=== PATIENT | female | born 1945 | race Caucasian/White ===

== ENCOUNTER → 2018-07-06 | Outpatient (CLI) | payer OTHER ==
[~2018-07-06] MED LIST: CARAFATE 1 GM TA1 G1 PO; CARDIZEM CD240 MG PO; CIPRO500 M1 PO; CRESTOR20 MG PO; FLOMAX0.4 MG PO; FLONASE16 GM; LOFIBRA200 MG PO; LOPRESSOR50 PO; NORCO 5-325 TA1 EACH PO; SPIRIVA; VENTOLIN HFA INH8 GM INH; XOPENEX0.31 MG/3; ZOFRAN ODT4 MG PO; ZOFRAN4 MG PO
== END ==
LOC: RAD 09:12
DX: R06.02 Shortness of breath (principal)

== ENCOUNTER 2018-12-20 10:03 | Emergency (ER) | payer OTHER ==
[~2018-12-20] VITALS: Ht 157.5 cm; Wt 59.9 kg
[2018-12-20 10:46] LABS: HEMATOCRIT 32.7 % (37.0-47.0); HEMOGLOBIN 10.5 gm/dL (12.0-15.0); MCH 25.8 pg (26.0-34.0); MCV 80.5 fL (80.0-100.0); PLATELET COUNT 319 thou/uL (150-400); RBC 4.06 mil/uL (4.20-5.00); RDW 15.7 % (10.5-14.5); WBC 10.3 thou/uL (4.0-11.0)
[2018-12-20 10:58] LABS: ANION GAP 12 mmol/L (7-16); BUN 16 mg/dL (7-18); CALCIUM 9.7 mg/dL (8.5-10.1); CHLORIDE 105 mmol/L (98-107); CO2 22 mmol/L (21-32); CREATININE 1.2 mg/dL (0.6-1.0); GLUCOSE 149 mg/dL (74-106); SODIUM 139 mmol/L (136-145)
[2018-12-20 11:07] LABS: ABSOLUTE NEUTROPHILS 8.3 thou/uL (1.4-8.2); PLATELET ESTIMATE NORMAL
[2018-12-20 11:08] LABS: ALBUMIN 3.4 g/dL (3.4-5.0); SGOT 25 U/L (15-37); SGPT 24 U/L (30-65); TOTAL BILIRUBIN 0.5 mg/dL (<0.1-1.0); TOTAL PROTEIN 7.4 g/dL (6.4-8.2); TROPONIN-I <0.06 ng/mL (<0.06)
[2018-12-20 11:39] LABS: APTT 30.1 Seconds (24.5-32.8); PROTIME 10.7 Seconds (9.3-11.4)
[2018-12-20] MEDS ORDERED: AUGMENTIN 875-1 EACH PO (12:23)
[2018-12-20] MEDS ORDERED: PREDNISONE 20 M20 MG PO (12:23)
[2018-12-20] MEDS ORDERED: ALBUTEROL2.5 MG/31 INH (12:25)
[2018-12-20 13:00] VITALS: BP 107/37
--- NOTE | 2018-12-20 19:22 | EKG ---
[place] [address] [facility] [place] [address] ELECTROCARDIOGRAM REPORT Name: TAMMY BERMUDEZ ALICIA Room #: DEP [facility] [id number] Admission: 12/20/18 Attend Phys: Discharge: 12/20/18 Date of : 41 Report #: [id number] THIS REPORT FOR: //name// [facility] ED Test Date: 2018-12-20 Test Time: 10:14:12 Pat Name: TAMMY BERMUDEZ Department: Room: Gender: F Customer Account Manager: RAY : 1945 Requested By: Guero Dela Cruz Order Number: [id number] MD: Alexey Alberts Measurements Intervals [place] Rate: 102 P: 0 CO: 145 QRS: 72 QRSD: 92 T: -27 QT: 344 QTc: 449 Interpretive Statements Sinus tachycardia Multiple premature complexes, vent & supraven Borderline repolarization abnormality Baseline wander in lead(s) V4 Compared to ECG 10/14/2013 00:08:24 Atrial and ventricular ectopy are now present Electronically Signed On 12-20-2018 19:22:37 LEASE BUYER by Alexey Alberts [email or web address] <ELECTRONICALLY SIGNED> By: Alexey Alberts MD, FACC 12/20/18 1922 1014 1014 Alexey Alberts MD, FAC /EPI
== END 2018-12-20 13:18 | disposition home or self-care (01) ==
LOC: ER 10:03
PROVIDERS: Emergency Medicine
DX: J44.1 Chronic obstructive pulmonary disease with (acute) exacerbation (principal); J20.9 Acute bronchitis, unspecified; J34.2 Deviated nasal septum

== ENCOUNTER → 2019-05-23 | Outpatient (CLI) | payer OTHER ==
[~2019-05-23] MED LIST changes: +ALBUTEROL2.5 MG/31 INH; +AUGMENTIN 875-1 EACH PO; +PREDNISONE 20 M20 MG PO
== END ==
LOC: SJCVC 16:04
DX: I25.119 Atherosclerotic heart disease of native coronary artery with unspecified angina pectoris (principal); I10 Essential (primary) hypertension; E78.00 Pure hypercholesterolemia, unspecified; E78.1 Pure hyperglyceridemia; I65.23 Occlusion and stenosis of bilateral carotid arteries; J44.9 Chronic obstructive pulmonary disease, unspecified; K21.9 Gastro-esophageal reflux disease without esophagitis; Z90.49 Acquired absence of other specified parts of digestive tract; Z90.710 Acquired absence of both cervix and uterus; Z79.899 Other long term (current) drug therapy; Z87.891 Personal history of nicotine dependence

== ENCOUNTER → 2019-06-28 | Outpatient (CLI) | payer OTHER | LOC: SJCVCIMAG 09:36 | DX: I11.9 Hypertensive heart disease without heart failure (principal); I49.1 Atrial premature depolarization; J44.9 Chronic obstructive pulmonary disease, unspecified; E78.1 Pure hyperglyceridemia; I25.119 Atherosclerotic heart disease of native coronary artery with unspecified angina pectoris; Z87.891 Personal history of nicotine dependence ==

== ENCOUNTER → 2019-10-17 | Outpatient (CLI) | payer OTHER | LOC: CAT 13:38 | PROVIDERS: ATTEND Pediatrics | DX: Z12.2 Encounter for screening for malignant neoplasm of respiratory organs (principal); I70.0 Atherosclerosis of aorta; I25.10 Atherosclerotic heart disease of native coronary artery without angina pectoris; Z87.891 Personal history of nicotine dependence ==

== ENCOUNTER → 2019-12-28 | Outpatient (CLI) | payer OTHER | LOC: SJCVCIMAG 08:49 | PROVIDERS: ATTEND Internal Medicine Cardiovascular Disease | DX: I08.1 Rheumatic disorders of both mitral and tricuspid valves (principal); I49.1 Atrial premature depolarization; I25.10 Atherosclerotic heart disease of native coronary artery without angina pectoris; I10 Essential (primary) hypertension; E78.00 Pure hypercholesterolemia, unspecified; I65.23 Occlusion and stenosis of bilateral carotid arteries; Z79.899 Other long term (current) drug therapy; Z87.891 Personal history of nicotine dependence ==

== ENCOUNTER → 2020-04-02 | Outpatient (CLI) | payer OTHER | LOC: CAT 10:34 | PROVIDERS: ATTEND Pediatrics | DX: R91.1 Solitary pulmonary nodule (principal); J84.10 Pulmonary fibrosis, unspecified ==

== ENCOUNTER → 2020-07-18 | Outpatient (CLI) | payer OTHER | LOC: MRI 10:05 | PROVIDERS: ATTEND Neuromusculoskeletal Medicine & OMM | DX: M47.812 Spondylosis without myelopathy or radiculopathy, cervical region (principal); R42 Dizziness and giddiness ==

== ENCOUNTER → 2020-07-25 | Outpatient (CLI) | payer OTHER | LOC: SJCVCIMAG 08:43 | PROVIDERS: ATTEND Internal Medicine Cardiovascular Disease | DX: R94.31 Abnormal electrocardiogram [ECG] [EKG] (principal); I65.23 Occlusion and stenosis of bilateral carotid arteries; I25.119 Atherosclerotic heart disease of native coronary artery with unspecified angina pectoris; I10 Essential (primary) hypertension; E78.00 Pure hypercholesterolemia, unspecified; I35.0 Nonrheumatic aortic (valve) stenosis; I25.10 Atherosclerotic heart disease of native coronary artery without angina pectoris; J44.9 Chronic obstructive pulmonary disease, unspecified; K21.9 Gastro-esophageal reflux disease without esophagitis; E78.5 Hyperlipidemia, unspecified; Z79.899 Other long term (current) drug therapy; Z87.891 Personal history of nicotine dependence; Z88.1 Allergy status to other antibiotic agents ==

== ENCOUNTER → 2020-11-20 | Outpatient (CLI) | payer OTHER | LOC: SJCVC 14:31 | PROVIDERS: ATTEND Internal Medicine Cardiovascular Disease | DX: R94.31 Abnormal electrocardiogram [ECG] [EKG] (principal); I25.119 Atherosclerotic heart disease of native coronary artery with unspecified angina pectoris; I10 Essential (primary) hypertension; E78.00 Pure hypercholesterolemia, unspecified; I35.0 Nonrheumatic aortic (valve) stenosis; I65.23 Occlusion and stenosis of bilateral carotid arteries; J44.9 Chronic obstructive pulmonary disease, unspecified; R42 Dizziness and giddiness; K21.9 Gastro-esophageal reflux disease without esophagitis; E78.5 Hyperlipidemia, unspecified; Z87.891 Personal history of nicotine dependence; Z88.1 Allergy status to other antibiotic agents; Z79.899 Other long term (current) drug therapy ==

== ENCOUNTER → 2020-12-02 | Outpatient (CLI) | payer OTHER | LOC: MRI 09:22 | PROVIDERS: ATTEND Neuromusculoskeletal Medicine & OMM | DX: I67.82 Cerebral ischemia (principal); R42 Dizziness and giddiness ==

== ENCOUNTER → 2020-12-19 | Outpatient (CLI) | payer OTHER | LOC: CAT 11:26 | PROVIDERS: ATTEND Pediatrics | DX: J44.9 Chronic obstructive pulmonary disease, unspecified (principal); R91.1 Solitary pulmonary nodule ==

== ENCOUNTER → 2021-01-17 | Outpatient (CLI) | payer OTHER ==
[~2021-01-17] MED LIST changes: +CEFDINIR300 MG PO; +DECADRON4 MG PO; +DORYX MPC120 MG PO; +IPRAT-ALBUT 0.5-3 ML INH; +PACERONE 200 M200 M1 PO; +XARELTO15 MG PO
== END ==
LOC: PET 12:06
PROVIDERS: ATTEND Pediatrics
DX: R91.1 Solitary pulmonary nodule (principal); R59.0 Localized enlarged lymph nodes; M79.89 Other specified soft tissue disorders

== ENCOUNTER 2021-01-26 20:19 | Inpatient (IN) | payer OTHER ==
[~2021-01-26] VITALS: Ht 157.5 cm; Wt 62.3 kg
[~2021-01-26 20:19] MED LIST changes: -CEFDINIR300 MG PO; -DECADRON4 MG PO; -DORYX MPC120 MG PO; -IPRAT-ALBUT 0.5-3 ML INH; -PACERONE 200 M200 M1 PO; -XARELTO15 MG PO
[2021-01-26 20:29] VITALS: BP 129/66
[2021-01-26 21:05] LABS: BASOPHILS 0.5 % (0.0-2.0); EOSINOPHILS 1.1 % (0.0-3.0); HEMATOCRIT 39.9 % (37.0-47.0); HEMOGLOBIN 13.5 gm/dL (12.0-15.0); LYMPHOCYTES 16.7 % (24.0-44.0); MCH 29.2 pg (26.0-34.0); MCHC 33.7 g/dL (28.0-37.0); MCV 86.4 fL (80.0-100.0); MONOCYTES 14.6 % (1.0-8.0); PLATELET COUNT 299 thou/uL (150-400); POLYS 67.1 % (36.0-66.0); RBC 4.62 mil/uL (4.20-5.00); RDW 16.2 % (10.5-14.5); WBC 7.5 thou/uL (4.0-11.0)
[2021-01-26 21:10] LABS: BE(vivo) -1.4 mmol/L (-2 to +3); HCO3 20.2 mmol/L (22.0-26.0); PCO2 26.2 mmHg (35.0-45.0); PO2 87.4 mmHg (80.0-100.0); pH 7.505 (7.360-7.450); sO2 97.5 % (92.0-98.0)
[2021-01-26 21:32] LABS: ALBUMIN 3.1 g/dL (3.4-5.0); CALCIUM 9.9 mg/dL (8.5-10.1); CREATININE 1.5 mg/dL (0.6-1.0); TOTAL BILIRUBIN 0.6 mg/dL (0.2-1.0)
[2021-01-26 21:33] LABS: POTASSIUM 2.8 mmol/L (3.5-5.1)
[2021-01-27] VITALS (7 sets, daily range): BP systolic 92–133; BP diastolic 45–55
[2021-01-27 02:36] LABS: URINE BILIRUBIN NEGATIVE (Negative); URINE BLOOD 3+ (Negative); URINE CLARITY CLEAR; URINE COLOR YELLOW; URINE GLUCOSE-RANDOM* NEGATIVE (Negative); URINE KETONES NEGATIVE (Negative); URINE LEUKOCYTES-REFLEX NEGATIVE (Negative); URINE NITRITE-REFLEX NEGATIVE (Negative); URINE PROTEIN (DIPSTICK) TRACE (Negative); URINE SPECIFIC GRAVITY 1.015 (1.005-1.035); URINE UROBILINOGEN 0.2 E.U./dl (0.2-1.0)
[2021-01-27 02:50] LABS: FINE GRANULAR CASTS 4-10 Moderate /LPF (None Seen); HYALINE CASTS 0-3 Few /LPF (None Seen); MUCUS 4-6 Moderate strn/LPF (None Seen); SQUAMOUS 0-3 Few /LPF (0-3); URINE RBC 1-2 Rare /HPF (NONE SEEN); URINE WBC-REFLEX 6-15 Few /HPF (0-5); WBC CASTS 4-10 Moderate /LPF (None Seen)
[2021-01-27 02:51] LABS: BACTERIA-REFLEX 1-9 Few /HPF (None Seen); CRYSTALS None Seen /LPF (None Seen)
--- NOTE | 2021-01-27 07:14 | EKG ---
[place] [address] [employer] [place] [address] ELECTROCARDIOGRAM REPORT Name: TAMMY BERMUDEZ ALICIA Room #: 170-10 ADM IN M.R.#: [id number] Admission: 01/26/21 Attend Phys: Edenilson Andujar MD Discharge: Date of : 41 Report #: [id number] [facility] ED Test Date: 2021-01-26 Test Time: 22:00:18 Pat Name: TAMMY BERMUDEZ Department: Room: 170 Gender: F Molder Offbearer: : 1945 Requested By: Juancho Rich Order Number: [id number] MD: Gui Russell Measurements Intervals Only Rate: 160 P: IA: QRS: 73 QRSD: 94 T: 233 QT: 271 QTc: 443 Interpretive Statements Atrial fibrillation with rapid V-rate Repolarization abnormality, prob rate related Baseline wander in lead(s) V5 Compared to ECG 12/20/2018 10:14:12 Sinus tachycardia no longer present Electronically Signed On 01-27-2021 7:14:43 MICROBIOLOGY DIRECTOR by Gui Russell [email or web address] <ELECTRONICALLY SIGNED> By: Gui Russell MD, [facility] 12/713 99 99 Gui Russell MD, FAC /EPI
--- NOTE | 2021-01-27 08:57 | EKG ---
[place] [address] [facility] [place] [address] ELECTROCARDIOGRAM REPORT Name: TAMMY BERMUDEZ ALICIA Room #: 205- ADM IN M.R.#: [id number] Admission: 01/26/21 Attend Phys: Edenilson Andujar MD Discharge: Date of : 41 Report #: [id number] [facility] ED Test Date: 2021-01-27 Test Time: 05:29:33 Pat Name: TAMMY BERMUDEZ Department: Room: 205 Gender: F Requisition Approver: : 1945 Requested By: Maddie Mello Order Number: [id number] MD: Alexey Alberts Measurements Intervals [place] Rate: 71 P: 0 CA: 59 QRS: 66 QRSD: 98 T: -5 QT: 448 QTc: 487 Interpretive Statements Sinus rhythm Atrial premature complex Short CA interval Borderline prolonged QT interval Compared to ECG 01/26/2021 22:00:18 Atrial fibrillation no longer present ST and T wave abnormality is less pronounced Electronically Signed On 01-27-2021 8:56:59 SOAP WORKER by Alexey Alberts [email or web address] <ELECTRONICALLY SIGNED> By: Alexey Alberts MD, [facility] 01/27/21 0856 0529 0529 Alexey Alberts MD, [facility] /EPI
[2021-01-27 09:47] LABS: CALCIUM 9.2 mg/dL (8.5-10.1); CREATININE 1.7 mg/dL (0.6-1.0); MAGNESIUM 2.6 mg/dL (1.8-2.4); POTASSIUM 3.6 mmol/L (3.5-5.1)
--- NOTE | 2021-01-27 11:59 | 2DMMODE ---
[facility] [place] [address] 2 D/M-MODE ECHOCARDIOGRAM Name: TAMMY BERMUDEZ RUIDOSO Room #: 205-P ADM IN M.R.#: [id number] Admission: 01/26/21 Attend Phys: Edenilson Andujar MD Discharge: Date of : 41 Report #: [id number] THIS REPORT FOR: cc: Marco Marquez,Alexey Caraballo MD [facility] ~ APPROVED REPORT Study performed: 01/27/2021 10:22:39 EXAM: Comprehensive 2D, Doppler, and color-flow Echocardiogram Patient Location: Bedside Room #: 205 Status: routine BSA: 1.59 HR: 61 bpm BP: 99/47 mmHg Rhythm: NSR Other Information Study Quality: Good Indications COPD Atrial Fibrillation CAD Hypertension/HDD 2D Dimensions RVDd: 30.05 mm IVSd: 10.79 (7-11mm) LVOT Diam: 19.12 (18-24mm) LVDd: 51.63 mm PWd: 9.70 (7-11mm) Ascending Ao: 30.96 (22-36mm) LVDs: 39.36 (25-40mm) Left Atrium: 34.79 (27-40mm) Aortic Root: 25.05 mm IVC: 15.00 mm Volumes Left Atrial Volume (Systole) Single Plane 4CH: 50.32 mL Single Plane 2CH: 48.12 mL LA ESV Index: 34.00 mL/m2 Aortic Valve AoV Peak Santino.: 2.32 m/s [facility] [place] [address] 2 D/M-MODE ECHOCARDIOGRAM Name: TAMMY BERMUDEZ RUIDOSO Room #: 205-P ADM IN M.R.#: [id number] Admission: 01/26/21 Attend Phys: Edenilson Andujar MD Discharge: Date of : 41 Report #: [id number] Peak Gr.: 21.47 mmHg LVOT Max P.53 mmHg AO Mean Gr.: 12.02 mmHg LVOT Mean P.96 mmHg AO V2 Mean: 1.62 m/s LVOT Max V: 0.94 m/s AO V2 VTI: 58.99 cm LVOT Mean V: 0.65 m/s PARISH (VTI): 1.16 cm2 LVOT V1 VTI: 23.86 cm PARISH Vmax: 1.16 cm2 SV (LVOT): 68.45 mL Mitral Valve E/A Ratio: 1.9 MV Decel. Time: 301.99 ms MV E Max Santino.: 1.18 m/s MV A Santino.: 0.62 m/s MV PHT: 87.58 ms IVRT: 83.04 ms Pulmonary Valve PV Peak Santino.: 0.85 m/s PV Peak Gr.: 2.86 mmHg Pulmonary Vein P Vein S: 0.44 m/s P Vein A: 0.26 m/s P Vein D: 0.64 m/s P Vein A Dur.: 101.5 msec P Vein S/D Ratio: 0.69 Tricuspid Valve TR Peak Santino.: 2.70 m/s TR Peak Gr.: 29.22 mmHg PA Pressure: 34.00 mmHg Left Ventricle The left ventricle is normal size. There is normal LV segmental wall motion. There is normal left ventricular wall thickness. The left ventricular systolic function is normal. The left ventricular ejection fraction is within the normal range. LVEF is 55-60%. Moderate diastolic dysfunction Right Ventricle The right ventricle is normal size. The right ventricular systolic function is normal. Atria The left atrium size is normal. The right atrium size is normal. Aortic Valve Aortic valve is calcified (Peak gradient 21mm Hg, mean 12mmHg). [place] [address] 2 D/M-MODE ECHOCARDIOGRAM Name: TAMMY BERMUDEZ RUIDOSO Room #: [address] [place] [address] IN [facility]#: [id number] Admission: 01/26/21 Attend Phys: Edenilson Andujar MD Discharge: Date of : 41 Report #: [id number] No aortic regurgitation is present. Mitral Valve Mild mitral annular calcification There is no mitral valve regurgitation noted. No evidence of mitral valve stenosis. Tricuspid Valve The tricuspid valve is normal in structure. There is trace tricuspid regurgitation. Estimated pulmonary artery pressure of 34 mmHg. Pulmonic Valve The pulmonary valve is normal in structure. There is no pulmonic valvular regurgitation. Great Vessels The aortic root is normal in size. IVC is normal in size and collapses >50% with inspiration. Pericardium There is no pericardial effusion. <Conclusion> The left ventricular systolic function is normal. There is normal LV segmental wall motion. LVEF is 55-60%. Moderate diastolic dysfunction Aortic valve is calcified (Peak gradient 21mm Hg, mean 12mmHg). Mild stenosis Mild mitral annular calcification. No mitral valve regurgitation There is trace tricuspid regurgitation. Estimated pulmonary artery pressure of 34 mmHg. No pericardial effusion. <ELECTRONICALLY SIGNED> By: Alexey Alberts MD, FACC 01/27/21 1159 1159 1159 Alexey Alberts MD, FACC /INF
--- NOTE | 2021-01-27 12:52 | EKG ---
[address] [place] [address] ELECTROCARDIOGRAM REPORT Name: TAMMY BERMUDEZ ALICIA Room #: 205-P ADM IN M.R.#: [id number] Admission: 01/26/21 Attend Phys: Edenilson Andujar MD Discharge: Date of : 41 Report #: [id number] [facility] ED Test Date: 2021-01-26 Test Time: 20:52:05 Pat Name: TAMMY BERMUDEZ Department: Room: 205 P Gender: F Associate Business Analyst: michelle : 1945 Requested By: Juancho Rich Order Number: [id number] MD: Gui Russell Measurements Intervals [place] Rate: 171 P: 88 [place]: 200 QRS: 76 QRSD: 88 T: 242 QT: 250 QTc: 422 Interpretive Statements AFIB Repolarization abnormality, prob rate related Compared to ECG 12/20/2018 10:14:12 Sinus tachycardia no longer present Electronically Signed On 01-27-2021 12:52:13 WINDOWS SYSTEMS ADMIN by Gui Russell [email or web address] <ELECTRONICALLY SIGNED> By: Gui Russell MD, [facility] 01/27/21 1252 51 51 Gui Russell MD, FACC /EPI
--- NOTE | 2021-01-27 12:52 | EKG ---
[address] [place] [address] ELECTROCARDIOGRAM REPORT Name: SARA BERMUDEZJuan Francisco VARGAS Room #: 205- ADM IN M.R.#: [id number] Admission: 01/26/21 Attend Phys: Edenilson Andujar MD Discharge: Date of : 41 Report #: [id number] [facility] Test Date: 2021-01-27 Test Time: 08:38:49 Pat Name: TAMMY BERMUDEZ Department: Room: 205 P Gender: F Wedger Machine: JALEESA : 1945 Requested By: Maddie Mello Order Number: [id number] MD: Gui Russell Measurements Intervals [place] Rate: 58 P: 67 RI: 147 QRS: 64 QRSD: 95 T: 230 QT: 420 QTc: 413 Interpretive Statements Sinus rhythm Atrial premature complex Nonspecific T abnormalities, diffuse leads Compared to ECG 01/27/2021 05:29:33 T-wave abnormality now present Short RI interval no longer present Electronically Signed On 01-27-2021 12:52:28 POWER ELECTRONICS ENGINEER by Gui Russell [email or web address] <ELECTRONICALLY SIGNED> By: Gui Russell MD, [facility] 01/27/21 1252 7 7 Gui Russell MD, [facility] /EPI
--- NOTE | 2021-01-27 16:16 | NUR ---
ASSUMED CARE OF THIS PATIENT FROM ED AT APPROX 0830 01/27. PT COMFORTABLE, ON 2L NC, DENIES PAIN. AMIO GTT INFUSING, TELE PATCHES/PACK APPLIED. VITAL SIGNS TAKEN, ROSARIO CATHETER ASSESSED, SCDS APPLIED, CALL LIGHT WITHIN REACH. PT PHONED SPOUSE TO UPDATE PT LOCATION IN HOSPITAL, WILL BE COMING TO BEDSIDE IN A FEW HOURS TO VISIT.
[2021-01-28 04:00] VITALS: BP 141/42
[2021-01-28 07:46] VITALS: BP 132/49
[2021-01-28] MEDS ORDERED: XARELTO15 MG PO (07:46)
[2021-01-28] MEDS ORDERED: PACERONE 200 M200 M1 PO (07:46)
[2021-01-28 10:46] LABS: CALCIUM 8.8 mg/dL (8.5-10.1); CREATININE 1.9 mg/dL (0.6-1.0); POTASSIUM 3.5 mmol/L (3.5-5.1)
[2021-01-28 11:24] VITALS: BP 105/79
[2021-01-28] MEDS ORDERED: IPRAT-ALBUT 0.5-3 ML INH (13:21)
[2021-01-28] MEDS ORDERED: CEFDINIR300 MG PO (13:21)
--- NOTE | 2021-01-28 14:41 | NUR ---
PER DR. HAAS, IF PATIENT DOESN'T NEED O2 AT HOME SHE CAN DC TODAY AFTER DRINKING 1000ML OF FLUID SINCE HER IV WENT BVAD. IF PATIENT NEEDS O2 THEN DC WILL BE HELD UNTIL TOMORROW. WCTM
[2021-01-28 15:18] VITALS: BP 142/59
--- NOTE | 2021-01-28 16:24 | NUR ---
PATIENT ADMITTED FOR AFIB W/RVR; ACUTE HYPOXIC RESP FAILURE;HYPOKALEMIA. CHART REVIEWED AND DISCUSSED WITH CARE TEAM. MET WITH PT THIS DAY. CM ROLE INTRODUCED. 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 EXER OX COMPLETE AND PT DOES NOT QUALIFY FOR HOME OXYGEN. PT LIVES AT HOME WITH HER . SHE WILL DC WITH NO HOME NEEDS. NO OTHER CM INTERVENTIONS INDICATED.
[2021-01-28 16:32] VITALS: BP 142/59
== END 2021-01-28 17:09 | disposition home or self-care (01) | DRG 193 ==
LOC: ER 20:19 → EROBS 23:52 → 2N 23:52
PROVIDERS: Emergency Medicine; Hospitalist; Nurse Practitioner Family; ADMIT Hospitalist; ATTEND Hospitalist
DX: J18.9 Pneumonia, unspecified organism (principal); J96.21 Acute and chronic respiratory failure with hypoxia; N17.9 Acute kidney failure, unspecified; I13.0 Hypertensive heart and chronic kidney disease with heart failure and stage 1 through stage 4 chronic kidney disease, or unspecified chronic kidney disease; I50.30 Unspecified diastolic (congestive) heart failure; J44.0 Chronic obstructive pulmonary disease with (acute) lower respiratory infection; R65.10 Systemic inflammatory response syndrome (SIRS) of non-infectious origin without acute organ dysfunction; I48.91 Unspecified atrial fibrillation; E78.5 Hyperlipidemia, unspecified; E87.6 Hypokalemia; N18.2 Chronic kidney disease, stage 2 (mild); Z83.3 Family history of diabetes mellitus; Z82.49 Family history of ischemic heart disease and other diseases of the circulatory system
CPT/HCPCS: 10081; 10797

== ENCOUNTER 2021-02-18 11:02 | Inpatient (IN) | payer OTHER ==
[~2021-02-18] VITALS: Ht 157.5 cm; Wt 59.0 kg
[~2021-02-18 11:02] MED LIST changes: +CEFDINIR300 MG PO; +IPRAT-ALBUT 0.5-3 ML INH; +PACERONE 200 M200 M1 PO; +XARELTO15 MG PO
[2021-02-18 11:24] VITALS: BP 86/40
[2021-02-18 12:42] LABS: ABSOLUTE NEUTROPHILS 5.6 thou/uL (1.4-8.2); BASOPHILS 0.4 % (0.0-2.0); EOSINOPHILS 4.2 % (0.0-3.0); HEMATOCRIT 27.4 % (37.0-47.0); HEMOGLOBIN 9.1 gm/dL (12.0-15.0); LYMPHOCYTES 13.9 % (24.0-44.0); MCH 29.1 pg (26.0-34.0); MCHC 33.2 g/dL (28.0-37.0); MCV 87.4 fL (80.0-100.0); MONOCYTES 11.2 % (1.0-8.0); PLATELET COUNT 357 thou/uL (150-400); POLYS 70.3 % (36.0-66.0); RBC 3.13 mil/uL (4.20-5.00); RDW 17.5 % (10.5-14.5)
[2021-02-18 12:50] LABS: CALCIUM 8.4 mg/dL (8.5-10.1); CREATININE 2.5 mg/dL (0.6-1.0); POTASSIUM 3.6 mmol/L (3.5-5.1)
[2021-02-18 13:01] LABS: ALBUMIN 2.6 g/dL (3.4-5.0); TOTAL PROTEIN 7.3 g/dL (6.4-8.2)
[2021-02-18 14:45] LABS: ALBUMIN 2.6 g/dL (3.4-5.0); DIRECT BILIRUBIN 0.2 mg/dL (<0.1-0.2); TOTAL BILIRUBIN 0.8 mg/dL (0.2-1.0); TOTAL PROTEIN 7.6 g/dL (6.4-8.2)
[2021-02-18 16:00] VITALS: BP 159/82
[2021-02-18 20:40] LABS: % SATURATION 18 % (20-39); IRON 57 ug/dL (50-170); TIBC 318 ug/dL (250-450)
[2021-02-18 20:49] VITALS: BP 125/52
[2021-02-18 21:07] LABS: FOLIC ACID 4.5 ng/mL (8.6-58.9)
[2021-02-19 03:19] LABS: ABSOLUTE NEUTROPHILS 4.9 thou/uL (1.4-8.2); BASOPHILS 0.4 % (0.0-2.0); EOSINOPHILS 3.8 % (0.0-3.0); HEMATOCRIT 24.3 % (37.0-47.0); LYMPHOCYTES 13.6 % (24.0-44.0); MCH 28.8 pg (26.0-34.0); MCHC 33.1 g/dL (28.0-37.0); MONOCYTES 9.8 % (1.0-8.0); PLATELET COUNT 305 thou/uL (150-400); POLYS 72.4 % (36.0-66.0); RBC 2.79 mil/uL (4.20-5.00); RDW 17.5 % (10.5-14.5); WBC 6.7 thou/uL (4.0-11.0)
--- NOTE | 2021-02-19 03:51 | NUR ---
Pt admitted from ER in stable condition. COVID + with recent pneumonia. She is on /, satting well above 95%.Continent of B/B. Requires SBA to the BSC.IVF infusing.SR on telemetry. Denies pain. Makes needs known.
[2021-02-19 04:42] LABS: CALCIUM 7.9 mg/dL (8.5-10.1); CREATININE 1.8 mg/dL (0.6-1.0); POTASSIUM 3.1 mmol/L (3.5-5.1)
[2021-02-19 06:20] VITALS: BP 119/45
[2021-02-19 08:07] VITALS: BP 128/51
--- NOTE | 2021-02-19 08:07 | EKG ---
[place] [address] [facility] [employer] [place] [address] ELECTROCARDIOGRAM REPORT Name: TAMMY BERMUDEZLINE Room #: 458-P ADM IN M.R.#: [id number] Admission: 02/18/21 Attend Phys: Kelvin Callahan MD Discharge: Date of : 41 Report #: [id number] [facility] ED Test Date: 2021-02-18 Test Time: 12:22:00 Pat Name: TAMMY BERMUDEZ Department: Room: [facility] Gender: F Ship'S Surveyor: MIRELLA : 1945 Requested By: Bryson Rowe Order Number: [id number] MD: Alexey Alberts Measurements Intervals [place] Rate: 77 P: 75 [place]: 142 QRS: 51 QRSD: 104 T: 17 QT: 451 QTc: 511 Interpretive Statements Sinus rhythm Multiple premature complexes, vent & supraven Nonspecific ST and T wave abnormality Prolonged QT interval Compared to ECG 01/27/2021 08:38:49 Prolonged QT interval now present Electronically Signed On 02-19-2021 8:07:23 CREW CAR DRIVER by Alexey Alberts [email or web address] <ELECTRONICALLY SIGNED> By: Alexey Alberts MD, [facility] 02/19/21806 122 122 Alexey Alberts MD, [facility] /EPI
[2021-02-19 10:49] VITALS: BP 117/48
--- NOTE | 2021-02-19 14:31 | NUR ---
PT ADMITTED RELATED TO COVID AND KAZ. CM REVIEWED CHART AND SPOKE WITH CARE TEAM. CM SPOKE WITH PT OVER THE PHONE THIS DAY. PT APPEARED TO BE A&O X4. CM ROLE INTRODUCED. PT INDICATED SHE LIVES IN A HOUSE WITH HER 2 STEPS TO ENTER 14 INSIDE. 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 PT INDICATED NO HH OR OP HX. 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 NAKUL COLIN. PT INDICATED SHE PLANS TO RETURN HOME ONCE MEDICALLY STABLE. ID AND RENAL TO EVAL. CM FOLLOWING.
--- NOTE | 2021-02-19 14:55 | NUR ---
Patient axox4, walking to bathroom, wash up herself. Miralax given to help with bowel movement. Patient stated no pain, sat up in the chair, poor appetite. Call light within reach, will continous monitoring.
[2021-02-19 16:04] VITALS: BP 121/62
[2021-02-19 20:52] VITALS: BP 131/51
--- NOTE | 2021-02-20 05:11 | NUR ---
patient aox3 confused and forgetful.patient ambulates in the room with steady gaits.patient had a panic attack this shift and c/o soa. o2 sat was 97%.no soa or distess noted this shift.called hospice coordinator no new orders. patient calm and asleep no s/s of pain or discomfort. patient in bed asleep at this time breathing regular and unlaboured.
[2021-02-20 05:31] VITALS: BP 147/52
[2021-02-20 07:07] LABS: HEMATOCRIT 24.9 % (37.0-47.0); HEMOGLOBIN 8.4 gm/dL (12.0-15.0); MCH 29.9 pg (26.0-34.0); MCHC 33.6 g/dL (28.0-37.0); PLATELET COUNT 359 thou/uL (150-400); RDW 17.8 % (10.5-14.5); WBC 5.8 thou/uL (4.0-11.0)
[2021-02-20 07:39] LABS: ALBUMIN 2.3 g/dL (3.4-5.0); CALCIUM 8.8 mg/dL (8.5-10.1); CREATININE 1.3 mg/dL (0.6-1.0); DIRECT BILIRUBIN 0.1 mg/dL (<0.1-0.2); MAGNESIUM 2.1 mg/dL (1.8-2.4); PHOSPHORUS 2.5 mg/dL (2.5-4.9); POTASSIUM 3.9 mmol/L (3.5-5.1); TOTAL BILIRUBIN 0.7 mg/dL (0.2-1.0); TOTAL PROTEIN 7.2 g/dL (6.4-8.2)
--- NOTE | 2021-02-20 07:44 | HC ---
[facility] [place] [address] CONSULTATION Name: TAMMY BERMUDEZ Room #: 458-P ADM IN M.R.#: [id number] Admission: 02/18/21 Attend Phys: Kelvin Callahan MD Discharge: Date of : 41 Report #: [id number] THIS REPORT FOR: cc: Brigid Hill Beth RNP Barry, Joseph W. MD ~ DATE OF SERVICE: 02/19/2021 INFECTIOUS DISEASE CONSULTATION ATTENDING PHYSICIAN: Dr. Callahan. REASON FOR EVALUATION: COVID-19 infection, complicated by pneumonitis and respiratory failure. HISTORY OF PRESENT ILLNESS: Chart reviewed. The patient examined. This is a 75-year-old woman with a history of underlying COPD, who was actually hospitalized in latter part of January with rapid AFib, pneumonitis. She was discharged in stable condition. At that time, she was negative on COVID testing. She apparently became lightheaded and actually fell, which prompted ER visit. She was found to have a positive COVID test. Chest x-ray noted improving interstitial opacities relative to the January x-ray ____ injury with creatinine increased to 2.5 from 1.9. She was initiated on therapy with supplemental oxygen 2 L per nasal cannula. She was given corticosteroids. Today, she states she feels somewhat improved, although is weak. ALLERGIES: Listed to AMOXICILLIN. CURRENT MEDICATIONS: Include rivaroxaban, methylprednisolone, amiodarone, pantoprazole, budesonide, DuoNeb, ondansetron. PAST MEDICAL HISTORY: As described above, some underlying COPD, hypertension, hyperlipidemia. SOCIAL HISTORY: Nonsmoker, no ethanol, no illicit drug use. FAMILY HISTORY: Noncontributory. REVIEW OF SYSTEMS: Otherwise, unremarkable. PHYSICAL EXAMINATION: GENERAL: She appears chronically ill. She is pleasant, cooperative, mild to moderate distress. She does appear undernourished, pale. VITAL SIGNS: Temperature 98.1, pulse 78, respirations 18, blood pressure 117/48. SKIN: Warm, dry, no rashes. [facility] [address] [facility] [place] [address] CONSULTATION Name: TAMMY BERMUDEZ ELKO Room #: 458-P [facility] IN M.R.#: [id number] Admission: 02/18/21 Attend Phys: Kelvin Callahan MD Discharge: Date of : 41 Report #: [id number] HEENT: Normocephalic. Extraocular muscles intact. NECK: Supple. LUNGS: Bilateral scattered coarse breath sounds, diminished overall. HEART: Irregular. I do not appreciate a murmur. ABDOMEN: Soft, nontender. GENITOURINARY AND RECTAL: Deferred. LABORATORY DATA: Most recent electrolytes, sodium 141, potassium 3.1, chloride 102, bicarbonate is 27, anion gap of 12, BUN and creatinine 23 and 1.8. CBC: White count of 6.7, H and H 8.0 and 24.3, platelets of 305. Ferritin 134. Coronavirus testing both by antigen and PCR were positive. Procalcitonin 0.07. Sed rate greater than 125. ASSESSMENT AND PLAN: COVID-19 infection, complicated by pneumonitis and respiratory failure. The patient was recently hospitalized with pneumonitis. We will initiate therapy with remdesivir and baricitinib, in addition to corticosteroids and vitamins. We will hold on antibacterials at the moment. May need additional evaluation too. I am concerned about occult process, anemia, marked elevation of inflammatory test. Continue oxygen therapy as required. Add incentive spirometry. <ELECTRONICALLY SIGNED> By: Vince Dwyer MD 02/20/21 0744 1441 2153 Vince Dwyer MD /nt
[2021-02-20 08:35] VITALS: BP 143/59
[2021-02-20 08:42] LABS: ABSOLUTE NEUTROPHILS 5.1 thou/uL (1.4-8.2); ANISOCYTOSIS 1+; POIKILOCYTOSIS 1+
[2021-02-20 08:43] LABS: PLATELET ESTIMATE NORMAL; POLYCHROMASIA 1+
[2021-02-20 12:13] VITALS: BP 140/76
[2021-02-20 16:43] VITALS: BP 162/54
--- NOTE | 2021-02-20 18:29 | NUR ---
ASSUMED PATIEMT CARE AT 0700. A/O X3. ANXIOUS. ON RA TOLERATED WELL. AMBULATED IN ROOM. SLOWLY TOWARDS POC GOALS.
[2021-02-20 19:27] VITALS: BP 150/53
--- NOTE | 2021-02-21 03:50 | NUR ---
PT IS A/O X4 WITH INCREASING CONFUSION THE NIGHT PROGRESSES. UP WITH SBA TO THE BSC OR CHAIR. STEADY ON HER FEET. C/O ANXIETY AND GENERALIZED PAIN ALL OVER. PRN ANXIETY AND PAIN MEDICATION GIVEN DIRECTED. MEDICATIONS GIVEN PER MAR. FALL PRECAUTIONS IN PLACE, CALL LIGHT IS WITHIN REACH.
[2021-02-21 04:09] LABS: ABSOLUTE NEUTROPHILS 9.6 thou/uL (1.4-8.2); BASOPHILS 0.1 % (0.0-2.0); HEMOGLOBIN 8.1 gm/dL (12.0-15.0); LYMPHOCYTES 9.5 % (24.0-44.0); MCHC 32.4 g/dL (28.0-37.0); MCV 89.7 fL (80.0-100.0); MONOCYTES 5.9 % (1.0-8.0); PLATELET COUNT 414 thou/uL (150-400); POLYS 84.5 % (36.0-66.0); RBC 2.78 mil/uL (4.20-5.00); RDW 18.3 % (10.5-14.5); WBC 11.4 thou/uL (4.0-11.0)
[2021-02-21 04:12] LABS: ALBUMIN 2.4 g/dL (3.4-5.0); ANION GAP 13 mmol/L (7-16); BUN 17 mg/dL (7-18); CALCIUM 9.2 mg/dL (8.5-10.1); CHLORIDE 110 mmol/L (98-107); CO2 22 mmol/L (21-32); DIRECT BILIRUBIN < 0.1 mg/dL (<0.1-0.2); GLUCOSE 153 mg/dL (74-106); POTASSIUM 4.8 mmol/L (3.5-5.1); SGOT 53 U/L (15-37); SGPT 36 U/L (30-65); SODIUM 145 mmol/L (136-145); TOTAL BILIRUBIN 0.4 mg/dL (0.2-1.0); TOTAL PROTEIN 7.2 g/dL (6.4-8.2)
[2021-02-21 07:45] VITALS: BP 163/70
[2021-02-21 10:33] VITALS: BP 163/70
[2021-02-21] MEDS ORDERED: DECADRON4 MG PO (11:25)
[2021-02-21] MEDS ORDERED: DORYX MPC120 MG PO (11:26)
[2021-02-21 15:54] VITALS: BP 163/70
== END 2021-02-21 15:00 | disposition home or self-care (01) | DRG 177 ==
LOC: ER 11:02 → 4W 14:20 → EROBS 14:20 → 4W 23:42
PROVIDERS: Emergency Medicine; Nurse Practitioner; Specialist; ADMIT Internal Medicine; ATTEND Internal Medicine
PROC: XW033E5 Introduction of Remdesivir Anti-infective into Peripheral Vein, Percutaneous Approach, New Technology Group 5 (ICD-10-PCS; principal; 2021-02-19)
DX: U07.1 COVID-19 (principal); J96.01 Acute respiratory failure with hypoxia; J12.82 Pneumonia due to coronavirus disease 2019; J44.1 Chronic obstructive pulmonary disease with (acute) exacerbation; N17.9 Acute kidney failure, unspecified; I13.0 Hypertensive heart and chronic kidney disease with heart failure and stage 1 through stage 4 chronic kidney disease, or unspecified chronic kidney disease; N18.4 Chronic kidney disease, stage 4 (severe); E46 Unspecified protein-calorie malnutrition; J44.0 Chronic obstructive pulmonary disease with (acute) lower respiratory infection; I50.9 Heart failure, unspecified; D64.9 Anemia, unspecified; E87.6 Hypokalemia; E78.5 Hyperlipidemia, unspecified; I48.91 Unspecified atrial fibrillation; I35.0 Nonrheumatic aortic (valve) stenosis; E86.9 Volume depletion, unspecified; Z88.1 Allergy status to other antibiotic agents; Z68.23 Body mass index [BMI] 23.0-23.9, adult
CPT/HCPCS: 10045

== ENCOUNTER → 2021-02-25 | Outpatient (CLI) | payer OTHER ==
[~2021-02-25] MED LIST changes: +DECADRON4 MG PO; +DILTIAZEM 24HR240 M1 PO; +DORYX MPC120 MG PO; +PACERONE400 MG PO; +ZINC50 MG PO
== END ==
LOC: SJCVCIMAG 14:25
PROVIDERS: ATTEND Internal Medicine Cardiovascular Disease
DX: I48.0 Paroxysmal atrial fibrillation (principal); E78.00 Pure hypercholesterolemia, unspecified; I10 Essential (primary) hypertension; J44.9 Chronic obstructive pulmonary disease, unspecified; I65.23 Occlusion and stenosis of bilateral carotid arteries; Z86.16 Personal history of COVID-19; D64.9 Anemia, unspecified; I35.0 Nonrheumatic aortic (valve) stenosis; F17.210 Nicotine dependence, cigarettes, uncomplicated; Z79.899 Other long term (current) drug therapy; Z88.8 Allergy status to other drugs, medicaments and biological substances

== ENCOUNTER → 2021-03-17 | Outpatient (CLI) | payer OTHER ==
[2021-03-17 08:22] LABS: CREATININE 1.2 mg/dL (0.6-1.0)
== END ==
LOC: CAT 03-12 10:03
PROVIDERS: ATTEND Pediatrics
DX: J84.10 Pulmonary fibrosis, unspecified (principal); R91.8 Other nonspecific abnormal finding of lung field; M51.34 Other intervertebral disc degeneration, thoracic region; K31.89 Other diseases of stomach and duodenum

== ENCOUNTER → 2021-03-19 | Outpatient (CLI) | payer OTHER ==
[~2021-03-19] VITALS: Ht 157.5 cm; Wt 59.1 kg
[2021-03-19 08:15] VITALS: BP 118/45
== END ==
LOC: OR 03-07 11:38 → PUL 03-07 16:04 → EDSTATUS 03-07 16:04 → PUL 07:16
PROVIDERS: ATTEND Pediatrics
DX: R91.1 Solitary pulmonary nodule (principal)
CPT/HCPCS: 50010; 62110; 62900; 70005

== ENCOUNTER → 2021-04-07 | Outpatient (CLI) | payer OTHER ==
[~2021-04-07] VITALS: Ht 157.5 cm; Wt 59.0 kg
[2021-04-07 07:16] VITALS: BP 127/46
[2021-04-07 08:12] LABS: HEMATOCRIT 23.5 % (37.0-47.0); HEMOGLOBIN 7.5 gm/dL (12.0-15.0); MCH 27.1 pg (26.0-34.0); MCV 84.7 fL (80.0-100.0); RBC 2.77 mil/uL (4.20-5.00); RDW 17.3 % (10.5-14.5); WBC 7.3 thou/uL (4.0-11.0)
--- NOTE | 2021-04-11 11:23 | PATH ---
[facility] [address] [place] [address] PATHOLOGY RPT PROCEDURE Name: TAMMY BERMUDEZ Room #: REG SAUNDRA M.Ellis.#: [id number] Admission: 04/07/21 Date of : 41 Discharge: Report #: [id number] Path Case #: [id number] Note [facility] Accession Number: [id number] TESTS RESULT FLAG UNITS REF RANGE LAB Clinician Provided Cytology Information No. of containers..01 Other (Miscellaneous) Source: BAL RUL DIAGNOSIS: BAL RUL INCONCLUSIVE. Comment: Scantly cellular BAL with few atypical cells , pulmonary macrophages and inflammation Case has been coreviewed with Dr.Shaheen Boss who agrees on 04/09/21. Signed out by: 02 Jennifer Martel MD, Pathologist NPI- [id number] Performed by: Carrie Phillips, Tax Clerk ([facility]) Gross description: 01 14ML, RED, CLOUDY /LCS 04/08/2021 1641 Local FLAG LEGEND: L-Low Normal,H-High Normal,LL-Alert Low,HH-Alert High <-Panic Low,>-Panic High,A-Abnormal,AA-Critical Abnormal Performed at: [address] [place] [address] Galen Boss MD, [address] [place] [phone] Izabella Hook MD, Specimen Comment: A courtesy copy of this report has been sent to [phone] Specimen Comment: [phone] Specimen Comment: Report sent to / DR COLIN Performed at: [address], [place], [place] [id number] MD Galen Boss MD Phone: [phone]
--- NOTE | 2021-04-11 16:07 | PATH ---
[facility] [address] [place] [address] PATHOLOGY RPT PROCEDURE Name: TAMMY BERMUDEZ Room #: REG [facility]..#: [id number] Admission: 04/07/21 Date of : 41 Discharge: Report #: [id number] Path Case #: [id number] Note [facility] Accession Number: [id number] TESTS RESULT FLAG UNITS REF RANGE LAB Clinician Provided Cytology Information No. of containers..01 Other (Miscellaneous) Source: BRONCH BRUSHINGS RUL DIAGNOSIS: 02 BRONCH BRUSHINGS RUL INCONCLUSIVE. ATYPICAL CELLS ,SUSPICIOUS FOR MALIGNANCY ABUNDANT RED BLOOD CELLS ARE PRESENT. NORMAL BRONCHIAL CELLS ARE PRESENT. Comment: Review of the smears show atypical cell groups with high N/C ratio in a background of abundant reactive bronchial cells. These cells are suspicious for non small cell carcinoma. There's also crush artifact present in the background. Please see corresponding surgical case [id number] for further details. This case has been coreviewed with who agrees on 04/09/2021. Signed out by: Jennifer Martel MD, Pathologist NPI- [id number] Performed by: Carrie Phillips, Loom Blower (ASCP) FLAG LEGEND: L-Low Normal,H-High Normal,LL-Alert Low,HH-Alert High <-Panic Low,>-Panic High,A-Abnormal,AA-Critical Abnormal Performed at: 01 [facility] [address] [place] [address] [address] [place] [address] Galen Boss MD, [address] [place] [address] [address] Izabella Hook MD, Specimen Comment: A courtesy copy of this report has been sent to [phone] Specimen Comment: [phone] Specimen Comment: Report sent to / DR COLIN Performed at: [address] [address] PATHOLOGY RPT PROCEDURE Name: TAMMY BERMUDEZ Room #: ALTAGRACIA Maya#: [id number] Admission: 04/07/21 Date of : 41 Discharge: Report #: [id number] Path Case #: [id number] [address] [facility] [address], [place], [place] [id number] MD Galen Boss MD Phone: [phone]
--- NOTE | 2021-04-14 10:07 | PATH ---
[facility] [address] [place] [address] PATHOLOGY RPT PROCEDURE Name: MARAH BERMUDEZ AILCIA Room #: REG [facility] M.R.#: [id number] Admission: 04/07/21 Date of : 41 Discharge: Report #: [id number] Path Case #: [id number] [facility] Accession Number: [id number] . 01 Material submitted: . lung - RUL LUNG MASS. Modifiers: right, upper . 02 Diagnosis: Right upper lobe lung mass, endobronchial biopsies: - Highly atypical cells identified, suspicious for non-small cell carcinoma. (JAVIER/harsha/tea; 04/09/2021) LBQ 04/11/2021 1059 Local . 02 Comment: Multiple fragments, some with crush artifact, are identified in the given biopsy. These cells have high nuclear cytoplasmic ratio and prominent nuclei. A tissue architecture is not identified and these cells are present in separate fragments. Although these cells are highly suspicious for malignancy, i.e. non-small cell carcinoma, a definitive diagnosis cannot be rendered as there is scant material present in the biopsy as well as on cytology material. . Immunohistochemical stains are performed on block A4 at [facility] with appropriate controls and show the following results: . TTF-1: Negative in atypical cells Napsin A: Negative in atypical cells p40: Negative in atypical cells. Synaptophysin: Negative in atypical cells. GATA3: Negative in atypical cells. CD56: Negative. VICTORIANO-EP4: Positive in atypical cells. . Although overall these cells show morphological features of possible non-small cell carcinoma, i.e. adenocarcinoma. Additional material is not present for definitive diagnosis or special studies. Recommend additional biopsies if clinically warranted. . Correlate with cytology ([phone], [id number] and 12947). . This case has also been co-reviewed with Dr. Izabella Hook, Dr. Galen Boss and Dr. Fabiano Redd who concur with my diagnosis on 04/09/2021. . (ANK:tea; 04/10/2021) . 02 [place] [address] PATHOLOGY RPT PROCEDURE Name: MARAH BERMUDEZ Room #: REG SAUNDRA Maya#: [id number] Admission: 04/07/21 Date of : 41 Discharge: Report #: [id number] Path Case #: [id number] Electronically signed: . Jennifer Martel MD, Pathologist NPI- [id number] . 01 Gross description: . The specimen is submitted in formalin, labeled "Tia, Marah, tissue biopsy RUL". Received are 7 needle cores of dark arteaga tissue ranging in length from 0.3 to 2.6 cm by 0.1-0.2 cm in diameter. The specimen is submitted entirely in cassettes A1 to A3. . Also received within the specimen container are multiple dark arteaga needle core fragments measuring 0.6 x 0.5 x 0.1 cm in aggregate dimensions. The specimen is filtered and submitted entirely in cassette A4.([facility]; 04/08/2021) [facility] 04/08/2021 1328 Local . 02 Pathologist provided ICD-10: J98.4, R91.8 . 02 CPT . 915755, S35272, G29666 Specimen Comment: A courtesy copy of this report has been sent to [phone] Specimen Comment: Report sent to Specimen Comment: A duplicate report has been generated due to demographic updates. Performed at: [address] [facility] [id number] MD Galen Boss MD Phone: [phone] Performed at: 02 [facility] [id number] [place] [id number] MD Izabella Hook MD Phone: [phone]
== END | disposition home or self-care (01) ==
LOC: PUL 06:04
PROVIDERS: Anesthesiology; ATTEND Pediatrics
DX: R91.8 Other nonspecific abnormal finding of lung field (principal); J98.4 Other disorders of lung; J44.9 Chronic obstructive pulmonary disease, unspecified; I10 Essential (primary) hypertension; E78.5 Hyperlipidemia, unspecified; I48.91 Unspecified atrial fibrillation; Z98.890 Other specified postprocedural states; Z79.899 Other long term (current) drug therapy; Z87.442 Personal history of urinary calculi; Z79.01 Long term (current) use of anticoagulants; Z98.41 Cataract extraction status, right eye; Z98.42 Cataract extraction status, left eye; Z90.710 Acquired absence of both cervix and uterus; Z88.8 Allergy status to other drugs, medicaments and biological substances
CPT/HCPCS: 50010; 62110; 62900; 70005